=== PATIENT | female | born 1965 | race Caucasian/White ===

== ENCOUNTER → 2017-03-14 | Outpatient (CLI) | payer OTHER ==
--- NOTE | ~2017-03-14 | MY11 ---
[facility] A Service of [facility] RADIOLOGY TEXT RESULTS PATIENT: SHANTEL OSORIO LOCATION: [facility] : 63 UNIT #: [id number] AGE: [address]: Cyndie Rey MD SEX: F ORDER DR: [id number] [address] [address] [id number] O MR#: [id number] Acc #: [id number] NAME: SHANTEL OSORIO : 1965 SEX: F STUDY DATE/TIME: 03/14/2017 15:54 UNIT: [facility] ROOM: STUDY DESCRIPTION: MY Mammogram Screening [employer] Attending Physician: Mic Rey M.D. Referring Physician: Mic Rey M.D. Ordering Physician: Mic Rey M.D. Primary Care Physician: Trey Sahu M.D. MEDICAL IMAGING REPORT This report is preliminary unless electronic signature is present. EXAM Digital screening mammogram, 03/14/2017 HISTORY 51-year-old woman no risk elevation. Patient on hormone replacement x1 year. Annual screening. COMPARISON Mammograms date to 10/18/2005 with most recent 01/16/2016. FINDINGS Digital imaging of each breast was completed utilizing screening protocol. Review includes FDA-approved CAD device. Breast parenchyma is heterogeneously dense. Mild parenchymal dominance projecting upper outer quadrant right breast is again noted and stable. I see no suspicious mass characteristics. There are no interval occurring microcalcifications and no architectural deformity. IMPRESSION Stable benign mammogram. Annual screening recommended. Patients over the age of 40 are entered into a reminder system with target due date for the next mammogram. A result letter will also be sent to the patient. BIRADS: 2 Benign Finding Dictated by... Alfredo Silveira M.D. THIS IS AN ELECTRONICALLY VERIFIED REPORT Alfredo Silveira M.D. at 03/15/2017 10:29 AM NEAL/brianna [facility] A Service of [facility] RADIOLOGY TEXT RESULTS PATIENT: SHANTEL OSORIO LOCATION: [facility] #: [id number] : 63 UNIT #: [id number] AGE: [address]: Cyndie Rey MD SEX: F ORDER DR: TD: 03/15/2017 09:46 JOB #: [id number] MEDICAL IMAGING REPORT Page 1 of 1
== END | disposition home or self-care (01) ==
LOC: SMAM 15:15
DX: Z12.31 Encounter for screening mammogram for malignant neoplasm of breast (principal)
CPT/HCPCS: G0202